=== PATIENT | female | born 1975 | race Caucasian/White ===

== ENCOUNTER 2016-12-24 23:44 | Emergency (ER) | payer MEDICAID ==
[~2016-12-24] VITALS: Ht 154.9 cm; Wt 80.0 kg
[2016-12-24 23:44] VITALS: Ht 154.9 cm; Wt 80.0 kg
[~2016-12-24 23:44] MED LIST: CIPR500T4 PO; PHEN-538 PO; [UNRECOGNIZED DRUG - CODE] TP
[2016-12-25] MEDS ORDERED: PEN500 PO (00:50)
[2016-12-25] MEDS ORDERED: IBUP-1542 PO (00:50)
--- NOTE | 2016-12-25 00:55 | ERD ---
ER Documentation Chief Complaint Date/Time DATE: 12/25/16 TIME: 00:52 Chief Complaint r ear pain for past 2 days HPI 41-year-old female presents in emergency department for complaints of sore throat radiating to the right ear started 2 days ago. Patient describes the pain as throbbing pain, 8/10 scale, is worse upon swallowing. Patient denies any stridor. Patient denies any shortness of breath. Patient took ibuprofen for pain with mild relief. ROS All systems reviewed and are negative except as per history of present illness. Medications Home Meds Active Scripts Ibuprofen* (Motrin*) 600 Mg Tab, 600 MG PO Q6H Y for PAIN AND OR ELEVATED TEMP, #30 TAB Prov:SEJAL BENEDICT NP 12/25/16 Penicillin V Potassium* (Penicillin V K*) 500 Mg Tab, 500 MG PO Q6 for 10 Days, TAB Prov:SEJAL BENEDICT NP 12/25/16 Salicylic Acid (Compound W) 7.5 Gm Gel..gram., 7.5 GM TP QHS for 7 Days Prov:LIS BLACKMAN 07/21/16 Phenazopyridine Hcl* (Pyridium*) 200 Mg Tab, 200 MG PO TID, #6 TAB Prov:ALEXANDR NICHOLSON NP 06/16/15 Ciprofloxacin Hcl* (Ciprofloxacin Hcl*) 500 Mg Tablet, 500 MG PO BID for 10 Days , TAB Prov:ALEXANDR NICHOLSON NP 06/16/15 Allergies Allergies: Coded Allergies: No Known Allergy (Unverified , 07/21/16) PMhx/Soc History of Surgery: Yes (C SECTION X 2) Anesthesia Reaction: No Hx Neurological Disorder: No Hx Respiratory Disorders: No Hx Cardiac Disorders: No Hx Psychiatric Problems: No Hx Miscellaneous Medical Probl: No Hx Alcohol Use: No Hx Substance Use: No Hx Tobacco Use: No Smoking Status: Never smoker FmHx Family History: No coronary disease, No diabetes, No other Physical Exam Vitals Vital Signs Date Time Temp Pulse Resp B/P Pulse Ox O2 Delivery O2 Flow Rate FiO2 12/24/16 23:44 98.4 100 18 125/76 98 Physical Exam GENERAL: The patient is well developed and appropriate for usual state of health, in no apparent distress. HEENT: Atraumatic. Ears: Normal tympanic membrane, no erythema or bulging. No ear canal swelling. No ear discharge. Nose: normal nasal turbinates, no erythema or swelling. Normal nasal discharge. Throat: oropharynx erythematous with +1 bilateral tonsillar swelling and tonsillar exudates noted. No lymphadenopathy. CHEST: Clear to auscultation bilaterally. There are no rales, wheezes or rhonchi. HEART: Regular rate and rhythm. No murmurs, clicks, rubs or gallops. No S3 or S4. ABDOMEN: Soft, nontender and nondistended. Good bowel sounds. No rebound or guarding. No gross peritonitis. No gross organomegaly or masses. No Saldivar sign or McBurney point tenderness. BACK: No midline or flank tenderness. EXTREMITIES: Equal pulses bilaterally. There is no peripheral clubbing, cyanosis or edema. No focal swelling or erythema. Full range of motion. Grossly neurovascularly intact. NEURO: Alert and oriented. Cranial nerves 2-12 intact. Motor strength in all 4 extremities with 5/5 strength. Sensation grossly intact. Normal speech and gait. SKIN: There is no apparent rash or petechia. The skin is warm and dry. HEMATOLOGIC AND LYMPHATIC: There is no evidence of excessive bruising or lymphedema. No gross cervical, axillary, or inguinal lymphadenopathy. Procedures/MDM Medical decision making: Patient symptoms is likely consistent with acute bacterial pharyngitis, most likely strep throat. Low suspicion for peritonsillar abscess, mononucleosis, no symptoms of epiglottitis, laryngitis. No oral airway obstruction noted. No symptoms of sepsis at this time. Patient appears well and is hemodynamically stable. Patient was given for Penicillin VK , ibuprofen, is advised to follow-up with primary care doctor in 2-3 days for reevaluation of symptoms. Patient is advised to do salt water gargles. Patient is advised to return to emergency department for worsening symptoms. Disposition: Home. Stable. Departure Diagnosis: Primary Impression: Strep pharyngitis Condition: Stable Patient Instructions: Pharyngitis, Strep (Presumed) SEJAL BENEDICT NP December 25, 2016 00:55
== END 2016-12-25 01:05 | disposition home or self-care (01) ==
LOC: FTE 23:44
DX: J02.0 Streptococcal pharyngitis (principal)
CPT/HCPCS: 99283